=== PATIENT | female | born 1985 | race Caucasian/White ===

== ENCOUNTER 2019-12-21 09:29 | Inpatient (IN) | payer OTHER ==
[~2019-12-21] VITALS: Ht 160 cm; Wt 78.9 kg
[~2019-12-21 09:29] MED LIST: CEPH-264 PO; HYDR-3164 PO; NITR100C62 PO; ONDA4TAB12 PO
[2019-12-21] MEDS ORDERED: IV RINGERS,LACTATED 1000ML 1,000 ML IV SCH (09:35)
[2019-12-21 10:06] VITALS: BP 94/57
[2019-12-21 10:28] LABS: HEMATOCRIT 37.4 % (36.0-47.0); RED BLOOD COUNT 3.87 x10^6/uL (3.50-5.40); RED CELL DISTRIBUTION WIDTH 12.3 % (11.5-14.5); WHITE BLOOD COUNT 15.3 x10^3/uL (4.0-11.0)
[2019-12-21] MEDS ORDERED: CITRIC ACID/SODIUM CITRATE 30 ML SOLUTION. PO ONE (10:30)
[2019-12-21] MEDS ORDERED: CITRIC ACID/SODIUM CITRATE 30 ML SOLUTION. ONE (10:32)
[2019-12-21] MEDS ORDERED: ONDANSETRON PF 4 MG/2 ML VIAL. ONE (11:42)
[2019-12-21] MEDS ORDERED: fentaNYL PF VIAL 100 MCG/2 ML VIAL ONE (11:42)
[2019-12-21] MEDS ORDERED: FAMOTIDINE 20 MG/2 ML VIAL ONE (11:42)
[2019-12-21] MEDS ORDERED: MORPHINE PF 10 MG/10 ML AMPUL. ONE (11:42)
[2019-12-21] MEDS ORDERED: OXYTOCIN 10 UNIT/ML VIAL. ONE (11:43)
[2019-12-21 11:56] LABS: BILIRUBIN,URINE NEGATIVE (NEG); CLARITY,URINE CLEAR; COLOR,URINE YELLOW; NITRITE,URINE NEGATIVE (NEG); PROTEIN,URINE NEGATIVE (NEG-TRACE)
[2019-12-21 12:09] LABS: BACTERIA,URINE 0 /HPF (0-FEW); RBC,URINE 0 /HPF (0-2); SQUAMOUS EPITHELIAL CELL,UR FEW /LPF; WBC,URINE 0 /HPF (0-4)
[2019-12-21] MEDS ORDERED: PHENYLEPHRINE in 0.9% NACL PF 1 MG/10 ML SYRINGE. IV ONE ×2 (12:17→12:41)
--- NOTE | 2019-12-21 12:52 | PDOC1 ---
OB - History Hx of Present Care: Good Care Ultrasounds: Normal mid trimester US Obstetrical Complications: None Medical Complications: None Past Family/Social History * Past Medical, Surgical, Family and Obstetric Histories reviewed from chart. Rubella: Immune RPR/VDRL: Negative GBS Status: Positive HBsAG: Negative OB - Chief Complaint & HPI Date of Admission: Date of Admission: Dec 21, 2019 at 09:29 Chief Complaint/History : 3 Para: 2 EGA: 39 Reason for admission: section Indication for : desires repeat Admission Nurse Assessment Rev: Yes OB - Admission Exam Physical Exam Vitals: VS - Last 72 Hours, by Label Date Time Temp Pulse Resp B/P (MAP) Pulse Ox O2 Delivery O2 Flow Rate FiO2 12/21/19 10:06 97.8 78 18 94/57 (69) 97 Room Air 97.8 HEENT: Normal Heart: Regular Rate Lungs: Clear Abdomen: Gravid, Non tender, Soft Extremities: Edema Reflexes: Normal Cervical Dilatation: Fingertip Effacement: 0% Station: -3 Membranes: Intact Heart Rate: Normal Accelerations: Accelerations Present Decelerations: No decelerations Contractions on Admission: None Text A: 39 wks IUP Previous c/s x 2 P; Admit repeat c/s. ROBERTO KEARNEY Jr, MD Dec 21, 2019 12:52
--- NOTE | 2019-12-21 13:03 | PDOC4 ---
OB Operative Note Date: Dec 21, 2019 PRE OP DIAGNOSIS: Previoujs C- section POST OP DIAGNOSIS: Previous C- section OPERATION PERFORMED: R [facility] Surgeon Dr. Beltran Part Maker Social Professionals: Misha Anesthesia: Regional (Spinal) Blood Loss 500 ml Specimen placenta and OB Findings: Position (Vertex), Sex (Male), (8/9), Weight (7 Lb 5 oz) Complications none Additional Remarks pt. ROBERTO Monroy Jr, MD Dec 21, 2019 13:02
[2019-12-21] MEDS ORDERED: MAG HYDROX/ALUMINUM HYD/SIMETH 30 ML ORAL.SUSP PO PRN (13:15)
[2019-12-21] MEDS ORDERED: ONDANSETRON PF 4 MG/2 ML VIAL. IV PRN (13:15)
[2019-12-21] MEDS ORDERED: diphenhydrAMINE ORAL ELIXIR 12.5 MG/5 ML ML PO PRN (13:15)
[2019-12-21] MEDS ORDERED: OXYTOCIN 30 UNIT/500 ML PREMIX 500 ML IV PRN (13:15)
[2019-12-21] MEDS ORDERED: 0.9 % SODIUM CHLORIDE 10 ML DISP.SYRIN. IV PRN (13:15)
[2019-12-21] MEDS ORDERED: ZOLPIDEM 5 MG TABLET. PO PRN (13:15)
[2019-12-21] MEDS ORDERED: SIMETHICONE 80 MG TAB.CHEW PO PRN (13:15)
--- NOTE | 2019-12-21 13:20 | OP ---
DATE OF SURGERY: POSTOPERATIVE DIAGNOSES: 1. A 39 weeks intrauterine . 2. Previous section x 2. POSTOPERATIVE DIAGNOSES: 1. A 39 weeks intrauterine . 2. Previous section x 2. PROCEDURE: Repeat low transverse section. SURGEON: Roberto Beltran MD REVERSE UNIT OPERATOR: Jeanette. ANESTHESIA: Spinal. ESTIMATED BLOOD LOSS: 500 mL. COMPLICATIONS: None. FINDINGS: Viable male infant, Apgars 8 and 9, weight 7 pounds 5 ounces. Three-vessel cord placenta delivered manually intact. SUMMARY: A 34-year-old 3, para 2 at 39 weeks, presents for repeat section. She was counseled on the risks, benefits and expectations and voiced clear understanding to proceed. DESCRIPTION OF PROCEDURE: The patient was taken to surgery suite and placed in dorsal supine position. She was prepped with ChloraPrep and draped in sterile fashion. After adequate anesthesia, a Pfannenstiel skin incision was made with scalpel down to and through the fascia. Fascia was extended laterally using curved Noel scissors. Superior edge of fascia was grasped with two Nicky clamps and dissected free of the abdominal rectus muscles using blunt dissection. Peritoneum was entered sharply with Metzenbaum scissors. This incision was extended superiorly as well as inferiorly. Hong ring retractor was placed. A low transverse hysterotomy incision was made with scalpel down to and through the amniotic sac, which elicited moderate amount of clear fluid. Hysterotomy incision was extended laterally and superiorly digitally. With the aid of fundal pressure, the 's head was delivered in a smooth atraumatic manner. With additional fundal pressure, the anterior shoulder was delivered followed by posterior shoulder and rest of the male infant was delivered. was suctioned with bulb syringe orally and nasally, umbilical cord was clamped twice and cut and viable male infant was handed to waiting nursing staff. Umbilical cord blood was then obtained. Three-vessel cord placenta was delivered manually intact. The uterus was then cleared of clot and debris with a moist lap. The hysterotomy incision was reapproximated using #1 Vicryl suture in running locked fashion. Hysterotomy incision was reviewed and was hemostatic. Pericolic gutters were cleared of clot and debris with moist lap. The fallopian tubes and ovaries appeared normal bilaterally. The Hong ring retractor was removed. The peritoneum was reapproximated using #1 Vicryl suture in running fashion. Fascia was reapproximated using Stratafix in a running fashion. Skin was reapproximated using 4-0 Vicryl suture in subcuticular manner. The patient tolerated the procedure well and was taken to recovery room in stable condition. Sponge and needle count correct x 3. ROBERTO BELTRAN MD DR: PATRICIA/sruthi JOB#: [id number] / [id number]
[2019-12-21] MEDS: KETOROLAC 30 MG/ML VIAL. IV PRN (14:20)
[2019-12-21] MEDS: IV RINGERS,LACTATED 1000ML 1,000 ML IV SCH ×2 (14:31→22:07)
[2019-12-21 15:45] VITALS: BP 122/69
[2019-12-21 16:15] VITALS: BP 97/58
[2019-12-21 17:00] VITALS: BP 107/68
[2019-12-21] MEDS ORDERED: FERROUS SULFATE 325 MG TABLET. PO SCH (17:00)
[2019-12-21 18:00] VITALS: BP 107/67
[2019-12-21 22:00] VITALS: BP 101/62
[2019-12-22 02:00] VITALS: BP 98/57
[2019-12-22 05:23] LABS: BASO # 0.1 x10^3/uL (0.0-0.2); BASO % 1 % (0-3); EOS # 0.2 x10^3/uL (0.0-0.7); EOS % 2 % (0-3); HEMATOCRIT 32.1 % (36.0-47.0); HEMOGLOBIN 11.2 g/dL (12.0-15.5); LYMPH # 2.7 x10^3/uL (1.0-4.8); LYMPH % 18 % (24-48); MEAN CORPUSCULAR HEMOGLOBIN 34 pg (25-35); MEAN CORPUSCULAR HGB CONC 35 g/dL (31-37); MEAN CORPUSCULAR VOLUME 98 fL (79-100); MONO % 7 % (0-9); NEUT % 73 % (31-73); PLATELET COUNT 199 x10^3/uL (140-400); RED BLOOD COUNT 3.28 x10^6/uL (3.50-5.40); RED CELL DISTRIBUTION WIDTH 12.7 % (11.5-14.5); WHITE BLOOD COUNT 15.1 x10^3/uL (4.0-11.0)
[2019-12-22 06:00] VITALS: BP 122/69
[2019-12-22] MEDS: DOCUSATE SODIUM 100 MG CAPSULE. PO PRN ×2 (08:44→21:29)
[2019-12-22] MEDS: MULTIVITAMIN with MINERAL TABLET. PO SCH (08:44)
[2019-12-22] MEDS: KETOROLAC 30 MG/ML VIAL. IV PRN (08:45)
[2019-12-22 09:07] VITALS: BP 107/69
--- NOTE | 2019-12-22 12:09 | PDOC ---
OB Progress Note Date of Service 12/22/19 Time of Evaluation 1205 Notes Pt. feeling well. Pain controlled. She reports Right rib pains since delivery that is worse with deep inspiration. Lab Laboratory Tests Test 12/21/19 10:06 12/21/19 11:00 12/22/19 05:10 White Blood Count 15.3 x10^3/uL (4.0-11.0) 15.1 x10^3/uL (4.0-11.0) Red Blood Count 3.87 x10^6/uL (3.50-5.40) 3.28 x10^6/uL (3.50-5.40) Hemoglobin 13.0 g/dL (12.0-15.5) 11.2 g/dL (12.0-15.5) Hematocrit 37.4 % (36.0-47.0) 32.1 % (36.0-47.0) Mean Corpuscular Volume 97 fL (79-100) 98 fL (79-100) Mean Corpuscular Hemoglobin 34 pg (25-35) 34 pg (25-35) Mean Corpuscular Hemoglobin Concent 35 g/dL (31-37) 35 g/dL (31-37) Red Cell Distribution Width 12.3 % (11.5-14.5) 12.7 % (11.5-14.5) Platelet Count 230 x10^3/uL (140-400) 199 x10^3/uL (140-400) Treponema pallidum Antibody Nonreactive (Nonreactive) Urine Collection Type Unknown Urine Color Yellow Urine Clarity Clear Urine pH 7.0 (<5.0-8.0) Urine Specific Alba 1.020 (1.000-1.030) Urine Protein Negative mg/dL (NEG-TRACE) Urine Glucose (UA) Negative mg/dL (NEG) Urine Ketones (Stick) Negative mg/dL (NEG) Urine Blood Negative (NEG) Urine Nitrite Negative (NEG) Urine Bilirubin Negative (NEG) Urine Urobilinogen Dipstick 1.0 mg/dL (0.2 mg/dL) Urine Leukocyte Esterase Negative (NEG) Urine RBC 0 /HPF (0-2) Urine WBC 0 /HPF (0-4) Urine Squamous Epithelial Cells Few /LPF Urine Bacteria 0 /HPF (0-FEW) Urine Mucus Slight /LPF Neutrophils (%) (Auto) 73 % (31-73) Lymphocytes (%) (Auto) 18 % (24-48) Monocytes (%) (Auto) 7 % (0-9) Eosinophils (%) (Auto) 2 % (0-3) Basophils (%) (Auto) 1 % (0-3) Neutrophils # (Auto) 11.0 x10^3/uL (1.8-7.7) Lymphocytes # (Auto) 2.7 x10^3/uL (1.0-4.8) Monocytes # (Auto) 1.0 x10^3/uL (0.0-1.1) Eosinophils # (Auto) 0.2 x10^3/uL (0.0-0.7) Basophils # (Auto) 0.1 x10^3/uL (0.0-0.2) Laboratory Tests Test 12/22/19 05:10 White Blood Count 15.1 x10^3/uL (4.0-11.0) Red Blood Count 3.28 x10^6/uL (3.50-5.40) Hemoglobin 11.2 g/dL (12.0-15.5) Hematocrit 32.1 % (36.0-47.0) Mean Corpuscular Volume 98 fL (79-100) Mean Corpuscular Hemoglobin 34 pg (25-35) Mean Corpuscular Hemoglobin Concent 35 g/dL (31-37) Red Cell Distribution Width 12.7 % (11.5-14.5) Platelet Count 199 x10^3/uL (140-400) Neutrophils (%) (Auto) 73 % (31-73) Lymphocytes (%) (Auto) 18 % (24-48) Monocytes (%) (Auto) 7 % (0-9) Eosinophils (%) (Auto) 2 % (0-3) Basophils (%) (Auto) 1 % (0-3) Neutrophils # (Auto) 11.0 x10^3/uL (1.8-7.7) Lymphocytes # (Auto) 2.7 x10^3/uL (1.0-4.8) Monocytes # (Auto) 1.0 x10^3/uL (0.0-1.1) Eosinophils # (Auto) 0.2 x10^3/uL (0.0-0.7) Basophils # (Auto) 0.1 x10^3/uL (0.0-0.2) Medications Current Medications Ringer's Solution 1,000 ml @ 1,000 mls/hr Q1H IV Last administered on 12/21/19at 10:27; Start 12/21/19 at 09:35; Stop 12/21/19 at 10:34; Status DC Cefazolin Sodium/ Dextrose 50 ml @ 100 mls/hr 1X ONCE IV Last administered on 12/21/19at 10:28; Start 12/21/19 at 09:45; Stop 12/21/19 at 10:14; Status DC Citric Acid/ Sodium Citrate (Bicitra) 30 ml 1X ONCE PO Last administered on 12/21/19at 11:39; Start 12/21/19 at 10:30; Stop 12/21/19 at 10:31; Status DC Citric Acid/ Sodium Citrate (Bicitra) 30 ml STK-MED ONCE .ROUTE ; Start 12/21/19 at 10:32; Stop 12/21/19 at 10:32; Status DC Famotidine (Pepcid Vial) 20 mg STK-MED ONCE .ROUTE ; Start 12/21/19 at 11:42; Stop 12/21/19 at 11:42; Status DC Ondansetron HCl (Zofran) 4 mg STK-MED ONCE .ROUTE ; Start 12/21/19 at 11:42; Stop 12/21/19 at 11:42; Status DC Fentanyl Citrate (Fentanyl 2ml Vial) 100 mcg STK-MED ONCE .ROUTE ; Start 12/21/19 at 11:42; Stop 12/21/19 at 11:43; Status DC Morphine Sulfate (Morphine Preservative Free) 10 mg STK-MED ONCE .ROUTE ; Start 12/21/19 at 11:42; Stop 12/21/19 at 11:43; Status DC Oxytocin (Pitocin) 10 unit STK-MED ONCE .ROUTE ; Start 12/21/19 at 11:43; Stop 12/21/19 at 11:43; Status DC Phenylephrine HCl (PHENYLEPHRINE in 0.9% NACL PF) 1 mg STK-MED ONCE IV ; Start 12/21/19 at 12:17; Stop 12/21/19 at 12:17; Status DC Phenylephrine HCl (PHENYLEPHRINE in 0.9% NACL PF) 1 mg STK-MED ONCE IV ; Start 12/21/19 at 12:41; Stop 12/21/19 at 12:41; Status DC Sodium Chloride (Normal Saline Flush) 3 ml QSHIFT PRN IV AFTER MEDS AND BLOOD DRAWS; Start 12/21/19 at 13:15 Oxytocin/Sodium Chloride 500 ml @ 125 mls/hr CONT PRN IV EXCESSIVE POST- BLEEDING; Start 12/21/19 at 13:15; Stop 12/21/19 at 21:14; Status DC Ibuprofen (Motrin) 800 mg PRN Q8HRS PRN PO INFLAMMATION; Start 12/21/19 at 13:15 Ondansetron HCl (Zofran) 4 mg PRN Q6HRS PRN IV NAUSEA/VOMITING; Start 12/21/19 at 13:15 Docusate Sodium (Colace) 100 mg PRN BID PRN PO CONSTIPATION Last administered on 12/22/19at 08:44; Start 12/21/19 at 13:15 Al Hydroxide/Mg Hydroxide (Mylanta Plus Xs) 30 ml PRN Q4HRS PRN PO HEARTBURN / GAS; Start 12/21/19 at 13:15 Simethicone (Gas-X) 80 mg PRN AFTMEALHC PRN PO GAS / BLOATING Last administered on 12/22/19at 08:44; Start 12/21/19 at 13:15 Diphenhydramine HCl (Benadryl Oral Elixir) 12.5 mg PRN Q6HRS PRN PO ITCHING; Start 12/21/19 at 13:15 Ferrous Sulfate (Feosol) 325 mg BIDWMEALS PO ; Start 12/21/19 at 17:00; Stop 12/22/19 at 07:17; Status DC Zolpidem Tartrate (Ambien) 5 mg PRN QHS PRN PO INSOMNIA, MAY REPEAT X1; Start 12/21/19 at 13:15 Oxycodone/ Acetaminophen (Percocet 5/325) 2 tab PRN Q4HRS PRN PO MODERATE PAIN, SEVERE PAIN; Start 12/21/19 at 13:15 Ketorolac Tromethamine (Toradol 30mg Vial) 30 mg PRN Q6HRS PRN IV PAIN Last administered on 12/22/19at 08:45; Start 12/21/19 at 13:15; Stop 12/26/19 at 13:14 Multivitamins (Thera M Plus) 1 tab DAILY PO Last administered on 12/22/19at 08:44; Start 12/22/19 at 09:00 Ringer's Solution 1,000 ml @ 125 mls/hr Q8H IV Last administered on 12/21/19at 22:07; Start 12/21/19 at 14:30; Stop 12/22/19 at 07:17; Status DC Active Scripts Active Macrobid 100 Mg Capsule (Nitrofurantoin Monohyd/M-Cryst) 100 Mg Capsule 1 Cap PO DAILY Ondansetron Odt (Ondansetron) 4 Mg Tab.rapdis 1 Tab PO PRN Q6-8HRS Exam Abd: soft, mild tenderness, fundus firm Incision site: clean, dry and intact Assessment POD#1 s/p repeat c/s Plan of Care: Continue current Tx, Mgmt ROBERTO KEARNEY Jr, MD Dec 22, 2019 12:09
[2019-12-22 14:00] VITALS: BP 112/69
[2019-12-22] MEDS: IBUPROFEN 400 MG TABLET. PO PRN ×2 (15:09→23:19)
[2019-12-22 18:26] VITALS: BP 114/71
[2019-12-22] MEDS: ACETAMINOPHEN 325 MG TABLET. PO PRN (21:29)
[2019-12-22 21:44] VITALS: BP 117/74
[2019-12-23] MEDS: ACETAMINOPHEN 325 MG TABLET. PO PRN (04:07)
[2019-12-23 04:19] VITALS: BP 109/67
[2019-12-23 08:20] VITALS: BP 110/71
[2019-12-23] MEDS: MULTIVITAMIN with MINERAL TABLET. PO SCH (08:27)
[2019-12-23] MEDS: IBUPROFEN 400 MG TABLET. PO PRN (08:28)
[2019-12-23] MEDS: DOCUSATE SODIUM 100 MG CAPSULE. PO PRN (08:28)
--- NOTE | 2019-12-23 09:48 | PDOC3 ---
OB DISCHARGE SUMMARY DATE OF ADMISSION: 12/21/19 DATE OF DISCHARGE: 12/23/19 REASON FOR ADMISSION: section INTRAPARTUM PROCEDURES: : Low Cerv Trans DISCHARGE DIAGNOSIS: Term Delivered DISCHARGE INFORMATION: Activity (ad kel), Diet (regular), Instructions (pelvic rest x 6 wks) HOSPITAL COURSE Term gestation delivered repeat section without complications. ROBERTO KEARNEY Jr, MD Dec 23, 2019 09:48
[2019-12-23] MEDS ORDERED: IBUP-1027 PO (09:53)
[2019-12-23] MEDS ORDERED: DOCU-153 PO (09:53)
[2019-12-23] MEDS ORDERED: OXYC1TAB15 PO (09:53)
--- NOTE | 2019-12-23 09:53 | DISCH ---
DISCHARGE INSTRUCTIONS Condition on Discharge Condition on Discharge: Stable Activity After Discharge Activity Instructions for Disc: Activity as tolerated, Avoid exertion Bathing Instructions: No Tub Bath until see Lifting Instructions after Dis: No heavy lifting, No pulling or pushing, Do not lift >10 pounds Exercise Instruction after Dis: Progress as tolerated Driving Instructions after Dis: No driving for 2 weeks Diet after Discharge Diet after Discharge: Regular Contacting the [facility] after DC Call your doctor for: Concerns you may have Follow-Up Follow up with: Dr. Beltran in 2 wks ROBERTO BELTRAN Jr, MD Dec 23, 2019 09:53
[2019-12-23] MEDS: oxyCODONE/APAP 5/325 1 TAB TABLET PO PRN ×2 (12:08→13:23)
[2019-12-23 14:05] VITALS: BP 120/76
--- NOTE | 2019-12-23 14:51 | NUR ---
dismissed at 1430 to in car and baby in carseat. Refused w/c and walked to [facility]. Stable on feet. Reminded to reurn if any problems or call dr. Dwayne almaraz office for appt in 2 weeks. Rx given to pt and she put in folder. Addendum: 12/23/19 at 1454 by MONROE MARTINEZ RN Amended: Links added.
== END 2019-12-23 14:30 | disposition home or self-care (01) | DRG 788 ==
LOC: MERGE 09:29 → 3 SO LND 09:29 → 3 NORTH 16:15
PROVIDERS: ADMIT Obstetrics & Gynecology; ATTEND Obstetrics & Gynecology
PROC: 10D00Z1 Extraction of Products of Conception, Low, Open Approach (ICD-10-PCS; principal; 2019-12-21)
PROC: 3E0334Z Introduction of Serum, Toxoid and Vaccine into Peripheral Vein, Percutaneous Approach (ICD-10-PCS; 2019-12-21)
DX: O34.211 Maternal care for low transverse scar from previous cesarean delivery (principal); Z3A.39 39 weeks gestation of pregnancy; Z37.0 Single live birth; O26.893 Other specified pregnancy related conditions, third trimester; Z67.41 Type O blood, Rh negative
CPT/HCPCS: 36415; 81001; 85025; 85027; 85461; 86592; 86850; 86900; 86901; J0696; J1885; J2274; J2370; J2405; J2590; J2791; J3010; J3490; J7120; G0378

== ENCOUNTER → 2020-05-10 | Outpatient (CLI) | payer OTHER ==
[~2020-05-10] MED LIST changes: +DOCU-153 PO; +IBUP-1027 PO; +OXYC1TAB15 PO
== END | disposition home or self-care (01) ==
LOC: LAB 07:54
PROVIDERS: ATTEND Internal Medicine Pulmonary Disease
DX: Z11.59 Encounter for screening for other viral diseases (principal)
CPT/HCPCS: U0003-CS

== ENCOUNTER → 2020-08-18 | Outpatient (CLI) | payer OTHER | LOC: LAB 12:31 | PROVIDERS: ATTEND Internal Medicine Pulmonary Disease | DX: R05 Cough (principal); R11.2 Nausea with vomiting, unspecified; M79.10 Myalgia, unspecified site; R09.81 Nasal congestion; R68.83 Chills (without fever); Z20.828 Contact with and (suspected) exposure to other viral communicable diseases | CPT/HCPCS: U0003 ==

== ENCOUNTER → 2021-01-30 | Outpatient (CLI) | payer OTHER | LOC: OPSVCOP 13:08 | PROVIDERS: ATTEND Internal Medicine Pulmonary Disease | DX: Z20.822 Contact with and (suspected) exposure to COVID-19 (principal) | CPT/HCPCS: U0003; U0005 ==